=== PATIENT | male | born 1950 | race Caucasian/White ===

== ENCOUNTER → 2017-02-17 | Outpatient (CLI) | payer MEDICARE ==
--- NOTE | 2017-02-17 12:01 | CTL ---
EXAMINATION TYPE: CT Low Dose Lung DATE OF EXAM ORDERED: 02/17/2017 9:28 AM HISTORY: History of tobacco use. Lung cancer screening CT DLP: 118.[address] CTDI: 3.2 mGy Automated exposure control for dose reduction was used. SCREENING VISIT: 1 COMPARISON: None TECHNIQUE: Low dose computed tomography scan was performed through the chest at 1 mm thick sections a nd reconstructed images in the coronal plane at [address] DIAGNOSTIC QUALITY: Satisfactory FINDINGS: LUNG NODULES: None. LUNGS: COPD: Severity: Mild to moderate centrilobular emphysematous changes are present at the upper lobes. Fibrosis: Severity: None Lymph nodes: Calcified in the mediastinum Other findings: RIGHT PLEURAL SPACE: Effusion: None Calcification: None Thickening: None Pneumothorax: None LEFT PLEURAL SPACE: Effusion: None Calcification: None Thickening: None Pneumothorax: None HEART: Heart Size: Small Coronary calcification: Present within the left coronary system Pericardial effusion: None OTHER FINDINGS: Upper abdomen: Unremarkable Bony thorax: Within normal limits Supraclavicular region: No evident adenopathy Other: Right adrenal gland shows a low attenuation mass measuring 2.8 cm likely representing an adeno ma, calcification noted within the spleen IMPRESSION: Emphysema possible old granulomatous disease, coronary artery disease, right adrenal mass as described FOLLOW UP CT CHEST RECOMMENDATION: [address] LUNG RAD: Benign BI-RADS 2 Consider follow-up for right adrenal mass.
== END | disposition home or self-care (01) ==
LOC: RADCTMAIN 09:06
PROVIDERS: ATTEND Family Medicine
DX: Z12.2 Encounter for screening for malignant neoplasm of respiratory organs (principal); Z87.891 Personal history of nicotine dependence; J43.9 Emphysema, unspecified

== ENCOUNTER → 2017-02-24 | Outpatient (CLI) | payer MEDICARE, OTHER ==
--- NOTE | 2017-02-24 08:27 | US ---
EXAMINATION TYPE: US duplex aorta DATE OF EXAM: 02/24/2017 7:10 AM COMPARISON: NONE CLINICAL HISTORY: Z13.6 Screening for cardiovascular system disease. EXAM MEASUREMENTS: Abdominal Aorta: Proximal: 2.4 x 2.4cm Mid: 2.0 x 2.3cm Distal: 1.8 x 2.2cm Bifurcation: 1.1 x 1.4cm 1.0 x 1.3cm Portions of proximal aorta obscured by overlying bowel content. NO evidence of AAA at this time. Calc ifications noted distally Grayscale, color Doppler, spectral Doppler imaging performed of the aorta IMPRESSION: Abdominal aortic aneurysm is not evident
== END | disposition home or self-care (01) ==
LOC: RADUSWWP 06:46
PROVIDERS: ATTEND Family Medicine
DX: Z13.6 Encounter for screening for cardiovascular disorders (principal)
CPT/HCPCS: 93979

== ENCOUNTER → 2018-03-03 | Outpatient (CLI) | payer MEDICARE ==
--- NOTE | 2018-03-03 12:04 | CTL ---
EXAMINATION TYPE: CT Low Dose Lung DATE OF EXAM ORDERED: 03/03/2018 HISTORY: Personal history tobacco use. Lung cancer screening CT DLP: 117.[address] CTDI: 3.4 mGy Automated exposure control for dose reduction was used. SCREENING VISIT: 2 COMPARISON: None TECHNIQUE: Low dose computed tomography scan was performed through the chest at 1 mm thick sections a nd reconstructed images in the coronal plane at [address] DIAGNOSTIC QUALITY: Satisfactory FINDINGS: LUNG NODULES: Present, detailed below: Stable calcified right upper lobe nodule present posteriorly compatible with granuloma. LUNGS: COPD: Stable Fibrosis: Severity: None Lymph nodes: Stable Findings: Exam is stable. HEART: Stable, coronary artery calcifications are present Other: No significant interval change. Stable right adrenal mass shows low attenuation. Calcification present within the spleen. IMPRESSION: Stable exam FOLLOW UP CT CHEST RECOMMENDATION: [address] LUNG RAD: Lung-Rad 2 Benign Appearance or Behavior
== END ==
LOC: RADCTMAIN 08:21
PROVIDERS: ATTEND Family Medicine
DX: Z12.2 Encounter for screening for malignant neoplasm of respiratory organs (principal); Z87.891 Personal history of nicotine dependence

== ENCOUNTER → 2019-03-15 | Outpatient (CLI) | payer MEDICARE ==
--- NOTE | 2019-03-15 16:22 | CTL ---
EXAMINATION TYPE: CT Low Dose Lung DATE OF EXAM ORDERED: 03/15/2019 HISTORY: Personal history of tobacco abuse. Lung cancer screening CT DLP: 118.[address] CTDI: 3.3 mGy Automated exposure control for dose reduction was used. SCREENING VISIT: Subsequent COMPARISON: 02/17/2017 and 03/03/2018 TECHNIQUE: Low dose computed tomography scan was performed through the chest at 1 mm thick sections a nd reconstructed images in the coronal plane at [address] DIAGNOSTIC QUALITY: Satisfactory FINDINGS: LUNG NODULES: Present, detailed below: Benign right upper lobe calcified granuloma is present on image 66, and stable. LUNGS: COPD: Severity: Very mild centrilobular Fibrosis: Severity: Minimal biapical pleural parenchymal scarring. Lymph nodes: Nonenlarged RIGHT PLEURAL SPACE: Effusion: None Calcification: None Thickening: None Pneumothorax: None LEFT PLEURAL SPACE: Effusion: None Calcification: None Thickening: None Pneumothorax: None HEART: Heart Size: Nonenlarged Coronary calcification: Moderate Pericardial effusion: None OTHER FINDINGS: Upper abdomen: Low-density stable approximately 2.4 cm right adrenal gland nodule with noncontrast Ho unsfield unit of 6 compatible with a benign lipid rich adenoma. Benign parenchymal calcification of t he spleen from prior granulomatous disease. Bony thorax: Mild multilevel degenerative change of the spine Supraclavicular region: Unremarkable IMPRESSION: Stable right apical granuloma, benign. Stable right adrenal gland lipid rich adenoma, and stable mild emphysematous changes of the lungs. FOLLOW UP CT CHEST RECOMMENDATION: Continued annual screening with low dose CT is recommended in [address] [facility] LUNG RAD: Lung-Rad 2 Benign Appearance or Behavior
== END | disposition home or self-care (01) ==
LOC: RADCTMAIN 14:16
PROVIDERS: ATTEND Family Medicine
DX: Z12.2 Encounter for screening for malignant neoplasm of respiratory organs (principal); J43.9 Emphysema, unspecified; J84.10 Pulmonary fibrosis, unspecified; Z87.891 Personal history of nicotine dependence

== ENCOUNTER → 2019-09-11 | Outpatient (CLI) | payer MEDICARE ==
--- NOTE | 2019-09-11 12:54 | US ---
EXAMINATION TYPE: US scrotum with doppler. Grayscale and color Doppler Duplex imaging performed of negrito rojas scrotum. 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 swollen right testicle x 2 days but is improving, no inj ury EXAM MEASUREMENTS: TESTICLES: Right Testicle: 5.7 x 3.9 x 2.7 cm Left Testicle: 5.9 x 3.3 x 2.4 cm EPIDIDYMIS HEAD: Right Epididymis: 0.8 cm Left Epididymis: 1.0 cm, 2.1cm cystic structure seen inferior and medial to left testicle may repres ent epididymal tail cyst Doppler performed to assess for testicular vascularity; good bilateral color flow and waveforms are s een. There is no evidence of testicular torsion. Presence of hydroceles: no Presence of varicoceles: no IMPRESSION: 1. Left-sided epididymal cyst.
== END | disposition home or self-care (01) ==
LOC: RADUSWWP 11:57
PROVIDERS: ATTEND Family Medicine
DX: N50.3 Cyst of epididymis (principal)
CPT/HCPCS: 76870; 93975

== ENCOUNTER → 2021-10-29 | Outpatient (CLI) | payer MEDICARE ==
--- NOTE | 2021-10-29 14:07 | CTL ---
EXAMINATION TYPE: CT Low Dose Lung DATE OF EXAM ORDERED: 10/29/2021 HISTORY: . Lung cancer screening CT DLP: [address] CTDI: 2.94 mGy Automated exposure control for dose reduction was used. SCREENING VISIT: COMPARISON: 03/15/2019 TECHNIQUE: Low dose computed tomography scan was performed through the chest at 1 mm thick sections a nd reconstructed images in multiple planes at 1 mm and [address] DIAGNOSTIC QUALITY: Limited, but interpretable FINDINGS: Exam limited by artifact. There is a 5 mm calcified granuloma right upper lobe stable. Biapical pleural thickening. No pleural calcification. No pleural effusion or pneumothorax. No consol idative pneumonia. Hypertrophic and degenerative changes spine. Mild emphysematous changes are similar to the prior exam . Calcified lymph nodes in the pretracheal region. Assessment for adenopathy limited by technique. Dian sly no pathologic adenopathy suspected coronary artery calcification noted. Heart size normal. There is a stable appearing right adrenal mass measuring 2.2 cm. Splenic granuloma noted. Atherosclerotic changes aorta. IMPRESSION: 1. COPD with stable right upper lobe granuloma. 2. Stable right adrenal nodule is indeterminate CT LUNG RAD AND CT CHEST RECOMMENDATION: Lung-Rad 2 Benign Appearance or Behavior: Continue annual sc reening with LDCT in 12 months.
== END | disposition home or self-care (01) ==
LOC: RADCTMAIN 12:28
PROVIDERS: ATTEND Family Medicine
DX: Z12.2 Encounter for screening for malignant neoplasm of respiratory organs (principal); Z87.891 Personal history of nicotine dependence; J84.10 Pulmonary fibrosis, unspecified; J44.9 Chronic obstructive pulmonary disease, unspecified
CPT/HCPCS: 71271

== ENCOUNTER → 2021-11-23 | Outpatient (CLI) | payer MEDICARE ==
--- NOTE | 2021-11-23 10:48 | US ---
EXAMINATION TYPE: US abdomen complete DATE OF EXAM: 11/23/2021 COMPARISON: Correlation CT chest 10/29/2021 and 03/03/2018 CLINICAL HISTORY: 70-year-old male R91.8 Abn findings on diagnostic imaging. Abnormal finding on CT. TECHNIQUE: Multiple sonographic images of the abdomen are obtained. FINDINGS: EXAM MEASUREMENTS: Liver Length: 17.3 cm Gallbladder Wall: 0.1 cm CBD: 0.5 cm Spleen: 11.6 x 4.2 cm Right Kidney: 10.2 x 6.7 x 5.5cm Left Kidney: 11.3 x 5.7 x 6.0 cm Pancreas: Obscured by bowel gas Liver: Increased attenuation, decreased visualization of vessels suggestive of fatty infiltrate Gallbladder: wnl Evidence for sonographic Sandhu's sign: No CBD: wnl Spleen: Anechoic area 3.3 x3.4 x 3.4cm compatible with a benign cyst. Right Kidney: No hydronephrosis or evident masses seen Left Kidney: No hydronephrosis or evident masses seen Upper IVC: wnl Abd Aorta: wnl Dental Office Manager notes: Adrenal gland not seen, hypoechoic area seen in adrenal area possible mass seen on prior CT measuring 2.0x 1.9 x 1.9cm . IMPRESSION: 1. Borderline hepatomegaly with at least moderate hepatic steatosis. Correlate with LFTs, lipid profi le, and patient risk factors. 2. No gallstones or biliary ductal dilatation. 3. A vague hypoechoic area above the right kidney measuring 2.0 cm probably corresponds to the benign adrenal adenoma seen on recent CT, unchanged back to at least 03/03/2018. 4. Incidental 3.4 cm cyst of the spleen.
== END | disposition home or self-care (01) ==
LOC: RADUSWWP 08:18
PROVIDERS: ATTEND Family Medicine
DX: R16.0 Hepatomegaly, not elsewhere classified (principal); K76.0 Fatty (change of) liver, not elsewhere classified; D73.4 Cyst of spleen
CPT/HCPCS: 76700